=== PATIENT | female | born 1960 | race Caucasian/White ===

== ENCOUNTER 2025-05-19 09:46 | Outpatient (CLI) | payer BC | END 2025-05-19 09:47 | disposition home or self-care (01) | LOC: CSHMAMMO 09:46 | PROVIDERS: ATTEND Nurse Practitioner Primary Care | DX: Z12.31 Encounter for screening mammogram for malignant neoplasm of breast (principal); M85.89 Other specified disorders of bone density and structure, multiple sites; Z85.89 Personal history of malignant neoplasm of other organs and systems; Z91.89 Other specified personal risk factors, not elsewhere classified; M81.0 Age-related osteoporosis without current pathological fracture | CPT/HCPCS: 77063; 77067; 77080 ==